=== PATIENT | female | born 1965 | race Caucasian/White ===

== ENCOUNTER 2018-01-10 13:10 | Emergency (ER) | payer OTHER ==
[~2018-01-10] VITALS: Ht 162.6 cm; Wt 56.7 kg
[~2018-01-10 13:10] MED LIST: CHANTIX1 MG PO; LEVOTHYROXINE112 MCG PO
[2018-01-10] MEDS ORDERED: NORCO 5-325 TA1 EACH PO (14:26)
[2018-01-10] MEDS ORDERED: IBUPROFEN600 MG PO (14:26)
== END 2018-01-10 15:20 | disposition home or self-care (01) ==
LOC: ED 13:10
PROC: 0HQFXZZ Repair Right Hand Skin, External Approach (ICD-10-PCS; principal; 2018-01-10)
DX: S61.011A Laceration without foreign body of right thumb without damage to nail, initial encounter (principal); F17.200 Nicotine dependence, unspecified, uncomplicated; Z79.899 Other long term (current) drug therapy; Z23 Encounter for immunization; W23.0XXA Caught, crushed, jammed, or pinched between moving objects, initial encounter
CPT/HCPCS: 12001; 73140; 90471; 90715; 99283